=== PATIENT | male | born 1985 | race Caucasian/White ===

== ENCOUNTER 2017-02-03 19:22 | Emergency (ER) | payer MEDICARE, BC ==
[~2017-02-03] VITALS: Ht 180.3 cm; Wt 124.0 kg
[2017-02-03 19:33] VITALS: BP 143/87; PULSE 85; RESP 15; TEMP 98.1; O2SAT 97
--- NOTE | 2017-02-03 20:28 | PD ---
HPI Chief Complaint: Back/ Neck Pain or Injury Time Seen by Provider: 20:25 Travel History International Travel<30 days: No Contact w/Intl Traveler<30days: No Traveled to known affect area: No History of Present Illness HPI 31-year-old male presents to the emergency room for evaluation of low back pain for the past few days. Patient states he pulled his muscle when trying to lift heavy boxes 2 days ago. Pain is in his midline lumbar area without radiation. He states it is slightly better today than it has been but he has to move tomorrow and was hoping for a muscle relaxer. He has been taking 800 mg ibuprofen with moderate relief in symptoms. He denies upper or lower extremity paresthesias, saddle anesthesia, and loss of bowel or bladder control. Denies weight loss, fevers, and IV drug use. PFSH Past Medical History Diminished Hearing: No Migraines: Yes Tetanus Vaccination: Unknown Influenza Vaccination: No ?: Not Social History Alcohol Use: No Tobacco Use: No Substance Use: No Allergies-Medications (Allergen,Severity, Reaction): Coded Allergies: Grass (Verified Adverse Reaction, Unknown, 02/03/17) Review of Systems Except as stated in HPI: all other systems reviewed are Neg Physical Exam Narrative GENERAL: Well-nourished, well-developed male in no acute distress. Afebrile. Ambulatory. SKIN: Focused skin assessment warm/dry. No erythema or ecchymosis. HEAD: Normocephalic. EYES: No scleral icterus. No injection or drainage. NECK: Supple, trachea midline. No JVD or lymphadenopathy. CARDIOVASCULAR: Regular rate and rhythm without murmurs, gallops, or rubs. RESPIRATORY: Breath sounds equal bilaterally. No accessory muscle use. BACK: No CVA tenderness. No rash. No point tenderness on palpation of the spine. 2+ Achilles and patellar reflexes are equal bilaterally. Strength 5/5 and equal in lower extremities. Negative straight leg raise. Data Data Last Documented VS Vital Signs Date Time Temp Pulse Resp B/P Pulse Ox O2 Delivery O2 Flow Rate FiO2 02/03/17 19:33 98.1 85 15 143/87 97 Orders Ketorolac Inj (Toradol Inj) (02/03/17 20:30) Orphenadrine Inj (Norflex Inj) (02/03/17 20:30) MDM Medical Decision Making Medical Screen Exam Complete: Yes Emergency Medical Condition: Yes Medical Record Reviewed: Yes Differential Diagnosis Muscle spasm versus strain versus fracture unlikely Narrative Course 31-year-old male presents to the emergency room for evaluation of acute low back pain that started 2 days ago after lifting heavy boxes. No midline tenderness. There is no radiation. No red flag symptoms. No indication for imaging at this time. Patient was given Toradol and Norflex in the emergency room. Discharged with prescription for ibuprofen and Robaxin. Told to follow up with her primary care physician or return to the emergency room for worsening symptoms. He understands and agrees to plan. Diagnosis Primary Impression: Low back strain Qualified Code: S39.012A - Low back strain, initial encounter Referrals: Primary Care Physician Patient Instructions: Acute Low Back Pain (ED), General Instructions Additional Instructions: Rest and drink plenty of fluids. Take Robaxin as directed, as needed for pain. Take ibuprofen with food as directed, as needed for pain. Apply ice to the affected area for 20 minutes at a time, as needed for pain and swelling. Follow-up with a primary care physician. Return to the emergency room for worsening symptoms. Med/Other Pt SpecificInfo: Prescription(s) given Disposition: 01 DISCHARGE HOME Condition: Stable Christy Lopez February 03, 2017 20:28
[2017-02-03] MEDS ORDERED: ROBA750T PO (20:29)
[2017-02-03] MEDS ORDERED: IBUP800T23 PO (20:29)
[2017-02-03] MEDS ORDERED: KETOROLAC TROMETHAMINE 60 MG/2 ML (IM) VIAL IM ONE (20:30)
[2017-02-03] MEDS ORDERED: ORPHENADRINE INJ 60 MG/2 ML AMP IM ONE (20:30)
== END 2017-02-03 20:56 | disposition home or self-care (01) ==
LOC: PHEFT 19:22
DX: S39.012A Strain of muscle, fascia and tendon of lower back, initial encounter (principal); X50.0XXA Overexertion from strenuous movement or load, initial encounter
CPT/HCPCS: 96372; 99283; J1885; J2360

== ENCOUNTER 2017-05-10 20:47 | Emergency (ER) | payer MEDICARE, BC ==
[~2017-05-10] VITALS: Ht 180.3 cm; Wt 124.5 kg
[~2017-05-10 20:47] MED LIST: IBUP800T23 PO; ROBA750T PO
[2017-05-10 20:55] VITALS: BP 155/90; PULSE 89; RESP 16; TEMP 98.5; O2SAT 98
[2017-05-10] MEDS ORDERED: PENI500T PO (22:25)
--- NOTE | 2017-05-10 22:26 | PD ---
HPI Chief Complaint: ENT Complaint Time Seen by Provider: 22:05 Travel History International Travel<30 days: No Contact w/Intl Traveler<30days: No Traveled to known affect area: No History of Present Illness HPI 31-year-old male presents emergency department for evaluation of sore throat and fever times one day. Patient reports the pain is localized to the throat and worse with swallowing. He is able to eat and drink without difficulty. Symptoms severity is mild. No alleviating factors. PFSH Past Medical History Medical History: Denies Significant Hx Diminished Hearing: No Immunizations Current: No Migraines: Yes Tetanus Vaccination: > 5 Years Influenza Vaccination: No Past Surgical History Surgical History: No Previous Surgery Social History Alcohol Use: No Tobacco Use: No Substance Use: No Allergies-Medications (Allergen,Severity, Reaction): Coded Allergies: grass pollen (Unverified Adverse Reaction, Unknown, 05/10/17) Reported Meds & Prescriptions Reported Meds & Active Scripts Active No Active Prescriptions or Reported Medications Review of Systems Except as stated in HPI: all other systems reviewed are Neg General / Constitutional: No: Fever Eyes: No: Visual changes HENT: Positive: Sore Throat, No: Headaches Cardiovascular: No: Chest Pain or Discomfort Respiratory: No: Shortness of Breath Gastrointestinal: No: Abdominal Pain Physical Exam Narrative GENERAL: Well-nourished, well-developed patient. SKIN: Focused skin assessment warm/dry. HEAD: Normocephalic. EYES: No scleral icterus. No injection or drainage. THROAT: Pharyngeal erythema with mild tonsillar swelling and exudate NECK: Supple, trachea midline. No JVD or lymphadenopathy. CARDIOVASCULAR: Regular rate and rhythm without murmurs, gallops, or rubs. RESPIRATORY: Breath sounds equal bilaterally. No accessory muscle use. GASTROINTESTINAL: Abdomen soft, non-tender, nondistended. MUSCULOSKELETAL: No cyanosis, or edema. BACK: Nontender without obvious deformity. No CVA tenderness. Data Data Last Documented VS Vital Signs Date Time Temp Pulse Resp B/P Pulse Ox O2 Delivery O2 Flow Rate FiO2 05/10/17 20:55 98.5 89 16 155/90 98 MDM Medical Decision Making Medical Screen Exam Complete: Yes Emergency Medical Condition: Yes Differential Diagnosis Strep pharyngitis, viral pharyngitis, mononucleosis Narrative Course 31-year-old male presents emergency department for evaluation of sore throat and fever times one day. Patient's physical exam is reassuring. He has pharyngeal erythema with mild tonsillar swelling and exudate will be treated for strep pharyngitis. Diagnosis Primary Impression: Pharyngitis Qualified Code: J02.9 - Pharyngitis, unspecified etiology Referrals: Primary Care Physician Additional Instructions: Take the antibiotics as prescribed. Take [id number] Motrin or Tylenol scene of her pain. Stay well hydrated by drinking plenty of fluids. Scripts Penicillin V Potassium 500 Mg Pne261 Mg PO Q12HR #20 TAB Prov:Gwendolyn Avendano 05/10/17 Disposition: 01 DISCHARGE HOME Condition: Stable Gwendolyn Avendano May 10, 2017 22:26
== END 2017-05-10 22:31 | disposition home or self-care (01) ==
LOC: PHED 20:47 → PHEFT 22:31
DX: J02.9 Acute pharyngitis, unspecified (principal)
CPT/HCPCS: 99283